=== PATIENT | female | born 1955 | race Caucasian/White ===

== ENCOUNTER 2021-03-07 13:15 | Outpatient (CLI) | payer MEDICARE, SELFPAY ==
--- NOTE | 2021-03-07 13:00 | ECHO_ITS ---
Patient Info Name: Alyson Salomon Age: 65 years : 1955 Gender: Female Ht: 66 in Wt: 367 lbs BSA: 2.89 m2 HR: 86 bpm BP: 152 / 90 mmHg Heart Rhythm: Sinus Rhythm Technical Quality: Fair Exam Date: 03/07/2021 1:36 PM Exam Location: [facility] Pulmonary Patient Status: Outpatient Admit Date: 03/07/2021 Staff Ordering Physician: MairaMayuri PA-C Lead Enterprise Architect: CINTHYA Attending Provider: MairaMayuri PA-C Exam Type: CA echo doppler color flow Study Info Indications R06.09 - Other forms of dyspnea Complete two-dimensional, color flow and Doppler transthoracic echocardiogram is performed. Summary 1. Left ventricular chamber dimension is normal. 2. Left ventricular systolic function is normal, estimated at 60-65%. 3. There is mildly increased left ventricular wall thickness. 4. The left ventricular diastolic function is grade I diastolic dysfunction. 5. There is a small pericardial effusion. In proximity to the RV apex, there is most likely a larger loculated pericardial effusion with fibrinous material within the pericardial space. Cannot exclude pericardial cyst. Consider CT chest or cardiac MRI if CT chest unrevealing. Clinical correlation advised. Left Ventricle Left ventricular chamber dimension is normal. Left ventricular systolic function is normal, estimated at 60-65%. There is mildly increased left ventricular wall thickness. The left ventricular diastolic function is grade I diastolic dysfunction. Right Ventricle Right ventricular chamber dimension is normal. Right ventricular systolic function is normal. Left Atria Left atrial chamber dimension is normal. Right Atria Right atrial chamber dimension is normal. Aortic Valve The aortic valve is not well visualized. There is no aortic valve stenosis. There is no aortic valve regurgitation. Pulmonic Valve The pulmonic valve is not well visualized. Mitral Valve The mitral valve has normal leaflets. There is no mitral valve regurgitation. Tricuspid Valve The tricuspid valve leaflets are not well visualized. There is trace tricuspid valve regurgitation. No pulmonary hypertension, estimated pulmonary arterial systolic pressure is 14 mmHg. Pericardium/Pleural The pericardium appears normal. There is a small pericardial effusion. In proximity to the RV apex, there is most likely a larger loculated pericardial effusion with fibrinous material within the pericardial space. Cannot exclude pericardial cyst. Consider CT chest or cardiac MRI if CT chest unrevealing. Clinical correlation advised. Aorta The aortic root size at the sinus of Valsalva is normal. Left Ventricular Outflow Tract Name Value Normal LVOT 2D LVOT Diameter 2.0 cm LVOT Doppler LVOT Peak Gradient 4 mmHg LVOT Mean Gradient 2 mmHg LVOT VTI 24 cm LVOT VTI/AV VTI Ratio 0.9 LVOT Stroke Volume 76 ml LVOT CO 14.2 l/min LVOT CI 4.9 l/min/m2 Mitral Valve
== END 2021-03-07 13:16 | disposition home or self-care (01) ==
PROVIDERS: PCP Physician Assistant; Visit Provider Physician Assistant
DX: R06.09 Other forms of dyspnea (principal); I31.3 Pericardial effusion (noninflammatory)
CPT/HCPCS: 93306

== ENCOUNTER 2021-03-31 08:44 | Outpatient (CLI) | payer MEDICARE, SELFPAY ==
--- NOTE | ~2021-03-31 | CT_ITS ---
EXAMINATION: CT diagnostic chest wo con EXAM DATE: 03/31/2021 11:02 INDICATION: Abnormal echocardiogram SOB x 1 yr . TECHNIQUE: Spiral CT of the chest without contrast. Axial, coronal and sagittal images of the chest were reviewed. Coronal maximum intensity pixel images of chest reviewed. The dose-length product (D LP) for this examination was 1187.81 mGy-cm. The exposure was tailored according to patient size (au to mA exposure control), and iterative reconstruction (ASIR) was used as additional dose reduction te nique. There is no prior study for comparison. FINDINGS: The lungs are clear. There are no pleural or pericardial effusions. Tracheobronchial t ree is patent. There is no mediastinal, hilar or axillary lymphadenopathy. There is no pneumothor ax. Heart normal in size. No evidence of coronary arterial calcification. There are cholecystect dain clips. There is mild thoracic spondylosis without osteoblastic or osteolytic lesions identified. IMPRESSION: 1. Unremarkable CT chest examination. Reviewed, dictated and finalized at location A.
--- NOTE | 2021-04-03 10:38 | P.PCNPFT_ITS ---
PFT Procedure Performed PFT Procedure Performed Spirometry with Pre/Post Bronchodilator Plethysmography (Lung Vol) Diffusing Cap (DLCO) Flow Vol Loop PFT Interpretation DOS: 03/31/2021 REQUESTING: DANYA Rao REASON FOR TESTING: Dyspnea on exertion PULMONARY FUNCTION TESTS Results are reliable and reproducible. Spirometry: FEV1 is 84% predicted, 2.01 L before bronchodilator. FVC is 98%. FEV1/FVC is 68% predicted. The TDN75-87% is 44% predicted. After bronchodilator, there is a non-statistically significant change in the FEV and FVC. The FEF25- 75% increase by 21%. Lung volumes: Total lung capacity is 105%, normal. RV is 119%, upper limit of normal. RV/TLC is increased consistent with air trapping. Airway resistance is 88%, normal. Diffusion: DLCO is 55%, moderately decreased. Flow volume loop: mild scooping of the expiratory limb. IMPRESSION: There is a mild obstructive ventilatory impairment which is severe in the small airways, mild air trapping, moderate diffusion impairment. There is mild response to bronchodilator in the small airways. This study suggest possible COPD asthma overlap. Clinical correlation is recommended. Elena Gilliam MD
== END 2021-03-31 08:45 | disposition home or self-care (01) ==
LOC: CHSIMG 08:53 → CHSCARD 09:11
PROVIDERS: PCP Physician Assistant; Visit Provider Internal Medicine Cardiovascular Disease
DX: R93.1 Abnormal findings on diagnostic imaging of heart and coronary circulation (principal); R06.09 Other forms of dyspnea
CPT/HCPCS: 71250; 94060; 94726; 94729

== ENCOUNTER 2021-04-11 16:32 | Outpatient (CLI) | payer MEDICARE, SELFPAY ==
--- NOTE | ~2021-04-11 | US_ITS ---
EXAMINATION: US venous doppler [facility] DATE: 04/11/2021 17:46 INDICATION: Left lower limb pain TECHNIQUE: Grayscale ultrasound images without and with compression and Doppler ultrasound images of the left lower extremity veins were obtained. COMPARISON: 11/28/2016 FINDINGS: The visualized portions of left common femoral vein, profunda (deep) femoral vein, femoral vein, popl iteal vein, posterior tibial veins, gastrocnemius vein and greater saphenous vein outflow are patent. IMPRESSION: 1. No deep venous thrombosis in the left lower limb. Reviewed, dictated and finalized at location A. RNATIONAL MARKETING INTERN
[2021-04-11 17:10] LABS: D Dimer 0.79 ug/mL (<0.48)
== END 2021-04-11 16:33 | disposition home or self-care (01) ==
LOC: ANHIMG 16:37
PROVIDERS: PCP Physician Assistant; Visit Provider Physician Assistant
DX: M79.662 Pain in left lower leg (principal)
CPT/HCPCS: 36415; 85380; 93971

== ENCOUNTER 2022-02-16 07:09 | Outpatient (CLI) | payer MEDICARE, SELFPAY ==
[2022-02-16 08:27] LABS: Basophils Absolute Auto 0.1 K/mm3 (0.0-0.1); Basophils Percent Auto 0.6 % (0.2-1.2); Eosinophils Absolute Auto 0.2 K/mm3 (0-0.3); Eosinophils Percent Auto 1.9 % (0-4.4); Hematocrit 44.4 % (37.0-47.0); Hemoglobin 14.1 g/dL (12.0-15.0); Immature Granulocyte Absolute 0.05 K/mm3 (0.00-0.031); Immature Granulocyte Percent A 0.6 % (0-0.5); Lymphocytes Absolute Auto 1.52 K/mm3 (0.9-3.2); Lymphocytes Percent Auto 19.5 % (18.3-44.2); Mean Corpuscular HGB Conc 31.8 g/dl (32-36); Mean Corpuscular Hemoglobin 31.2 pg (26-34); Mean Corpuscular Volume 98.2 fl (80-100); Mean Platelet Volume 9.4 fl (7.4-10.4); Monocytes Absolute Auto 0.6 K/mm3 (0.1-0.6); Monocytes Percent Auto 8.2 % (2.6-8.5); Neutrophils Absolute Auto 5.4 K/mm3 (1.3-6.7); Neutrophils Percent Auto 69.2 % (45.5-73.1); Platelet Count Result 196 k/mm3 (150-375); Red Blood Count 4.52 M/mm3 (4.2-5.4); Red Cell Distribution Width 13.9 % (11.5-14.5); White Blood Count 7.8 K/mm3 (4.5-10.0)
[2022-02-16 08:47] LABS: Appearance Urine Clear (Clear); Bilirubin Urine Negative (Negative); Blood Urine Negative (Negative); Color Urine Yellow (Yellow); Glucose Urine UA Negative (Negative); Ketones Urine Negative (Negative); Leukocyte Esterase Ur Negative LEU/UL (NEGATIVE); Nitrate Urine Negative (Negative); Protein Urine Negative (Negative); Specific Grav Ur 1.025 (1.001-1.035); Urobilinogen Urine 0.2 mg/dL (<2.0)
[2022-02-16 08:51] LABS: NT Pro B Type Natriuretic Pept 58 pg/mL (5-100)
[2022-02-16 08:58] LABS: Alanine Aminotransferase 33 U/L (6-35); Albumin Level 4.4 g/dL (3.5-5.1); Alkaline Phosphatase 133 U/L (38-126); Anion Gap 9 mmol/L (8-16); Aspartate Amino Transferase 29 U/L (14-36); Bilirubin,Total 0.6 mg/dL (0.2-1.3); Blood Urea Nitrogen 15 mg/dL (7-17); Calcium 9.1 mg/dL (8.4-10.2); Carbon Dioxide 27 mmol/L (22-30); Chloride 104 mmol/L (98-107); Cholesterol 187 mg/dL (0-200); Estimated Glomerular Filt Rate > 60; Glucose 118 mg/dL (65-110); HDL Direct 62 mg/dL; Potassium 4.2 mmol/L (3.4-5.0); Sodium 140 mmol/L (137-145); Triglycerides 109 mg/dL (<150)
[2022-02-16 09:01] LABS: Add Urine Microscopic? NO
[2022-02-16 09:10] LABS: LDL Cholesterol Direct 92 mg/dL
[2022-02-16 09:40] LABS: Hemoglobin A1C 5.9 % (<5.7)
[2022-02-16 09:45] LABS: Free T4 Free Thyroxine 1.19 ng/mL (0.78-2.19)
[2022-02-19 13:50] LABS: Immunoglobulin G, Serum 1055 mg/dL (600-1540); Immunoglobulin G1 507 mg/dL (382-929); Immunoglobulin G2 443 mg/dL (241-700); Immunoglobulin G3 201 mg/dL (22-178); Immunoglobulin G4 18.4 mg/dL (4.0-86.0)
[2022-02-19 17:48] LABS: Alpha-1-Antitrypsin, QN 119 mg/dL (83-199)
[2022-02-20 12:42] LABS: NIL 0.03 IU/mL; Quantiferon TB Plus, 1T NEGATIVE (NEGATIVE)
[2022-02-22 04:27] LABS: Immunoglobulin E 15 kU/L (<=114)
== END 2022-02-16 07:10 | disposition home or self-care (01) ==
PROVIDERS: PCP Physician Assistant; Visit Provider Nurse Practitioner
DX: E03.9 Hypothyroidism, unspecified (principal); R73.01 Impaired fasting glucose; E78.5 Hyperlipidemia, unspecified; R32 Unspecified urinary incontinence; Z79.899 Other long term (current) drug therapy; J44.9 Chronic obstructive pulmonary disease, unspecified; R06.09 Other forms of dyspnea
CPT/HCPCS: 36415; 80048; 80061; 80076; 81003; 82103; 82104; 82784; 82785; 82787; 83036; 83880; 84439; 84443; 85025; 86003; 86480; 87086; 87088

== ENCOUNTER 2025-02-17 12:42 | Outpatient (CLI) | payer MEDICARE, SELFPAY ==
--- NOTE | ~2025-02-17 | DEXA_ITS ---
Bone Density Report Name: DENNIS BOUDREAUX Age: 69 Sex: Female Ethnicity: White Date of : 1955 Indication: postmenopausal; screening for osteoporosis; height loss; asthma or emphysema; rheumatoid arthritis; Referring Provider: IBAN, FELIPE Study: Bone densitometry was performed. Exam Date: February 17, 2025 Accession number: [id number] Bone Density: Region BMD T-score Z-score Classification AP Spine(L1, L3, L4) 0.986 -0.6 1.5 Normal Femoral Neck (Right) 0.690 -1.4 0.3 Osteopenia Total Hip (Right) 0.990 0.4 1.8 Normal World Health Organization criteria for BMD impression classify patients as: Normal (T-score at or above -1.0), Osteopenia (T-score between -1.0 and -2.5), or Osteoporosis (T-score at or below -2.5). 10-year Fracture Risk(1): Major Osteoporotic Fracture 10% Hip Fracture 1.3% Reported Risk Factors: [place] (), Neck BMD=0.690, BMI=46.0, rheumatoid arthritis Input outside FRAX(R) limits. Adjusted to:Dtqpoz=507 kg (1) FRAX(R) Version 3.08. Fracture probability calculated for an untreated patient. Fracture probability may be lower if the patient has received treatment. Clinical Information Provided by Patient: Has rheumatoid arthritis Has the following medical conditions: Asthma or Emphysema Patient maximum height was 66 Menopause Age: 47 No regular weight bearing exercise Drinks caffeinated beverages Onset of menses at age 13 Number of children 4 Impression: The patient has low bone mass, based on the Right Femoral Neck T-score. The patient has an estimated ten-year risk of hip fracture of 1.3% and an estimated ten-year risk of major fracture of 10%, based on the WHO FRAX algorithm. Discussion: BONE DENSITY IS LOW AT ONE OR MORE SKELETAL SITES. This patient's lowest T-score is low at one or more skeletal sites. It meets the World Health Organization's (WHO) criteria for ?low bone mass? (T-score between -1.0 and -2.5). The patient's 10-year risk of fracture as calculated by FRAX is less than the threshold where pharmacological therapy is recommended by the National Osteoporosis Foundation (NOF). However, all treatment decisions require clinical judgment and consideration of individual patient factors, including patient preferences, comorbidities, previous drug use, risk factors not captured in the FRAX model (e.g., frailty, falls, vitamin D deficiency, increased bone turnover, interval significant decline in bone density) and possible under or overestimation of fracture risk by FRAX. The patient should follow a healthful lifestyle (good nutrition with adequate calcium and vitamin D, and appropriate weight-bearing exercise). Follow-Up: Consider repeating this study in 2 to 3 years to reassess this patient's status, or sooner if there is some new clinical indication. Reported by: CELINE on 02/17/2025 1:19:00 PM. Reviewed, dictated and finalized at location A.
--- NOTE | ~2025-02-17 | MM_ITS ---
EXAMINATION: MM screening anthony BI w luis HISTORY: Screening TECHNIQUE: Craniocaudal and mediolateral oblique 3-D tomosynthesis images were obtained and synthetic 2-D images were generated. CAD analysis was submitted and interpreted. COMPARISON: No prior mammogram is available for comparison at this institution. BREAST PARENCHYMAL COMPOSITION: There are scattered areas of fibroglandular density. FINDINGS: There is no evidence of suspicious mass, calcification, or architectural distortion to suggest malignancy. IMPRESSION: 1. No mammographic evidence of malignancy. Recommend routine screening mammography in one year. BI-RADS Category 2: Benign finding(s) Reviewed, dictated and finalized at location Q. IMPRESSION: 1. No mammographic evidence of malignancy. Recommend routine screening mammogra phy in one year. BI-RADS Category 2: Benign finding(s)
--- OUTSIDE RECORDS SUMMARY | 2025-02-17 12:50 | XMS_ITS | Clinical Summary ---
Author Organization [facility] Address [address] [place] [address] Care Team Providers Care Knitting Machine Fixer Head Name Role Phone Bernabe Ryan MD Unavailable [phone] Pcp, Amarjit Farmer - Primary Care Provider U navailable Source Comments [facility],non-owned Affiliates and Associated Physician Practices is amultiple site organization consisting of ambulatory clinics and hospital sitesin [place] and [place]. This disclosure is being madepursuant to the Care Everywhere program and may not contain all information available regarding this patient. Last updated 18.[facility] Allergies Active Allergy Reactions Criticality Noted Date Comments Penicillins Anaphylaxis High 07/15/2020 Medications * Be aware that medications may not be up to date on this document. Alwaysverify current medications with the patient. levothyroxine (SYNTHROID) 100 MCG tablet Take 1 (one) tablet by mouth once daily 1 Active albuterol HFA (PROVENTIL;VENT PAPO;PROAIR) 108 (90 Base) MCG/ACT inhaler Acti ve celecoxib (CELEBREX) 200 MG capsule Take 1 (one) capsule by mouth once daily 30 capsule 1 1 Active Additional Information Patient taking differently: 400 mgOral2 TIMES DAILY, Reported on 07/27/2022 Sulfacetamide Sodium, Acne, 10 % 1 Active furosemide (LASIX) 40 MG tablet Take 1 (one) tablet by mouth as needed Active metoprolol tartrate (LOPRESSOR) 25 MG tablet Take 1 (one) tablet by mouth 2 times daily Active metFORMIN ER 24hr (GLUCOPHAGE XR) 500 MG tablet 2 Active hydroxychloroqu ine (Plaquenil) 200 MG tabletIndicatio ns:Rheumatoid arthritis involving multiple sites with positive rheumatoid factor (HCC) TAKE 1 (ONE) TABLET BY MOUTH 2 TIMES DAILY 180 tablet 3 Active predniSONE (Deltasone) 10 MG tabletIndicatio ns:Rheumatoid arthritis involving multiple sites with positive rheumatoid factor (HCC) Take 1 (one) tablet by mouth once daily as needed 30 tablet 3 Active Active Problems Problem Noted Date Diagnosed Date Malaise and fatigue 09/07/2020 Hypersomnia with sleep apnea 09/07/2020 M obesity 09/07/2020 Overview (11/02/2021): BMI over 40 Mild intermittent asthma 08/02/2020 Morbid obesity with alveolar hypoventilation 01/2021 FRANCIA on CPAP 08/02/2020 Chronic radicular lumbar pain 08/02/2020 Rheumatoid arthritis involving multiple sites Overview (11/02/2021): Lesly Pardo MD (Physician) Rheumatology Encounter Date: 10/20/2021 Palpitations 08/02/2020 Acquired hypothyroidism 08/02/2020 Edema of both lower extremities 08/02/2020 Multiple lipomas 08/02/2020 IFG (impaired fasting glucose) 08/02/2020 Vitamin D deficiency 08/02/2020 Family history of pityriasis rosea 08/02/2020 Family History Medical History Relation Name Comments Cancer Father CVA Mother Cancer - Colon Mother None Known Sister Relation Name Status Comments Brother Alive Father Mother Sister Alive Social History Tobacco Use Types Packs/Day Years Used Date Smoking Tobacco: Never Smokeless Tobacco: Never Tobacco Cessation:Counseling Given: No Alcohol Use Standard Drinks/Week Comments Never 0 (1 standard drink = 0.6 oz pur e alcohol) AUDIT-C Answer Date Recorded Q1: How often do you have a drink containing alc ohol? Never 08/02/2020 Average Number of Drinks Not on file 021 Frequency of Binge Drinking Not on file 01/2021 PHQ-2 Answer Date Recorded PHQ2 TOTAL SCORE 0 07/27/2022 Comments No Sex and Gender Information Value Date Recorded Sex Assigned at Not on file Legal Sex Female 2:14 PM CARDIOPULMONARY TECHNICIAN AND EEG TECH Gender Identity Not on file Sexual Orientation Not on file Last Filed Vital Signs Vital Sign Reading Time Taken Comments Blood Pressure 137/91 07/27/2022 2:01 PM CARDIOPULMONARY TECHNICIAN AND EEG TECH Pulse 89 07/27/2022 2:01 PM CARDIOPULMONARY TECHNICIAN AND EEG TECH Temperature 36.2 C (97.2 F) 09/07/2020 10:37 AM CDT Respiratory Rate 18 07/27/2022 2:01 PM CARDIOPULMONARY TECHNICIAN AND EEG TECH Oxygen Saturation 97% 03/06/2022 8:51 AM CDT Inhaled Oxygen Concentration - - Weight 159.5 kg (351 lb 11.2 oz) 07/27/2022 2:01 PM CARDIOPULMONARY TECHNICIAN AND EEG TECH Height 167.6 cm (5' 6) 07/27/2022 2:01 PM CARDIOPULMONARY TECHNICIAN AND EEG TECH Body Mass Index 56.77 07/27/2022 2:01 PM CARDIOPULMONARY TECHNICIAN AND EEG TECH Plan of Treatment Health Maintenance Due Date Last Done Comments BONE DENSITY TESTING 1955 COLOGUARD (AGES 45-75) - COLON CA SCREENING [address] COLONO[address]AP[address] - COLON CA SCREENING 1955 FIT - COLON CA SCREENING 1955 FLEX SIG - COLON CA SCREENING 1955 MEDICARE AWV 12 MONTHS 1955 HEPATITIS C SCREENING 11/22/1973 PNEUMOCOCCAL VACCINE 50+ (1 of 2 - PCV) 11/26/1974 ZOSTER VACCINE (1 of 2) 11/26/2005 Respiratory Syncytial Virus (RSV) Vaccine Pt: or over 60 yrs (1 - Risk 60-74 years 1-dose series) 2015 MAMMOGRAM 09/12/2023 09/11/2021 DEPRESSION SCREENING 05/27/2024 07/27/2022 COVID-19 VACCINE ( season) 2025 INFLUENZA VACCINE (#1) 2025 LIPID TESTING 07/22/2025 07/22/2020 SCREENING FOR DIABETES 09/12/2025 3, 10/20/2021, 07/22/2020, Additional history exists COLONOSCOPY - COLON CA SCREENING Discontinued Colorectal Cancer Screening Discontinued DTAP/TDAP/TD VACCINES Discontinued HEPATITIS B VACCINE Aged Out No longe r eligible based on patient's age to complete this topic HIB VACCINE Aged Out No longer eligi ble based on patient's age to complete this topic HPV VACCINE Aged Out No longer eligi ble based on patient's age to complete this topic MENINGOCOCCAL (Group B) VACCINE SHARED DECISION-MAKING Aged Out No longer eligible based on patient's age to complete this topic MENINGOCOCCAL GROUPS A/C/Y/W VACCINE Aged Out No longer eligible based on patient's age to complete this topic Procedures Procedure Name Priority Date/Time Associated Diagnosis Comments COMPREHENSIVE METABOLIC PANEL Routine 09/12/2022 1:02 PM CDT Rheumatoid arthritis involving multiple sites with positive rheumatoid factor MAMMOGRAM 09/11/2021 LIPID PROFILE W TCHOL/HDL Routine 07/22/2020 9:10 AM CARDIOPULMONARY TECHNICIAN AND EEG TECH Screening, lipid from Last 3 Months or Most Recently Relevant to Health Maintenance Results * (ABNORMAL) COMPREHENSIVE METABOLIC PANEL (09/12/2022 1:02 PM CDT) Glucose 94 70 - 105 mg/dL [facility] INSURANCE BILL BUN 13 9.8 - 20.1 mg/dL [facility] INSURANCE BILL Creatinine 0.71 0.57 - 1.11 mg/dL [facility] INSURANCE BILL eGFR by CKD-EPI >90 >=90 mL/min/1.7 3 m2 [facility] INSURANCE BILL Sodium 142 136 - 145 mmol/L [facility] INSURANCE BILL Potassium 4.2 3.5 - 5.1 mmol/L [facility] INSURANCE BILL Chloride 106 98 - 107 mmol/L [facility] INSURANCE BILL CO2 26 23 - 31 mmol/L [facility] INSURANCE BILL Calcium 9.5 8.4 - 10.4 mg/dL [facility] INSURANCE BILL Protein Total 8.0 6.4 - 8.3 gm/dL [facility] INSURANCE BILL Albumin 4.3 3.2 - 4.6 gm/dL [facility] INSURANCE BILL Bilirubin Total 0.8 0.2 - 1.2 mg/dL [facility] INSURANCE BILL Alkaline Phosphatase 124 40 - 150 U/L [facility] INSURANCE BILL AST 39(H) 5 - 34 U/L [facility] INSURANCE BILL ALT 51 0 - 61 U/L [facility] INSURANCE BILL Comment:FASTING Blood BLOOD SPECIMEN / Unknown 09/12/2022 1:02 PM CDT 09/12/2022 Narrative Resulting Agency Comment Lab Testing performed at: [address] Radha PACKER [id number] us Lesly Pardo MD LAB - CHEMISTRY ORDERABLES Final Result [facility] INSURANCE BILL [address] [place] [address] * MAMMOGRAM (09/11/2021) Anatomical Region Laterality Modality Other 09/11/2021 Narrative 09/11/2021 Ordered by an unspecified provider. us Scanned Document SCANNING ONLY Final Result * (ABNORMAL) LIPID PROFILE W TCHOL/HDL (07/22/2020 9:10 AM CARDIOPULMONARY TECHNICIAN AND EEG TECH) Cholesterol 184 100 - 199 mg/dL [facility] INSURANCE BILL Triglycerides 114 0 - 149 mg/dL [facility] INSURANCE BILL HDL Cholesterol 52 >39 mg/dL [facility] INSURANCE BILL VLDL Calculated 20 5 - 40 mg/dL [facility] INSURANCE BILL LDL Calculated 112(H) 0 - 99 mg/dL [facility] INSURANCE BILL Comment NOT NEEDED [facility] INSURANCE BILL Comment:Ancillary determined the test is not needed. Cholesterol/HDL Ratio 3.5 0.0 - 4.4 ratio [facility] INSURANCE BILL Comment: T. Chol/HDL Ratio Men Women 1/2 Avg.Risk 3.4 3.3 Avg.Risk 5.0 4.4 2X Avg.Risk 9.6 7.1 3X Avg.Risk 23.4 11.0 FASTING Blood BLOOD SPECIMEN / Unknown 07/22/2020 9:10 AM CARDIOPULMONARY TECHNICIAN AND EEG TECH 07/22/2020 Narrative Resulting Agency Comment Lab Testing performed at: [facility] [address] [id number] us Deon Osorio MD LAB - CHEMISTRY ORDERABLES Final Result Performing Organization Address City/[facility]/ZIP Co de Phone Number [facility] INSURANCE BILL [address] [place] [address] from Last 3 Months or Most Recently Relevant to Health Maintenance Insurance MEDICARE SUPPLEMENT [employer] DANYA UGARTE [id number] MEDICARE Care Teams Knitting Machine Fixer Head Relationship Specialty Start Date End Date Amarjit Alfredo PCP - General 12/21/22 Bernabe Ryan MD [address] [facility] [address] [address] Internal Medicine Sleep Medicine 09/07/20
--- OUTSIDE RECORDS SUMMARY | 2025-02-17 12:50 | XMS_ITS | Encounter Summary ---
Author Organization [facility] Address [address] [place] [address] Care Team Providers Care Vest Tailor Name Role Phone Genia Rao Primary Care Provider [phone] Reason for Visit * Reason Onset Date Comments Wants Appointment 01/17/2023 Encounter Details Date Type Department Care Team (Late st Contact Info) Description 01/17/2023 Telephone [facility] Spine and Pain Management at the [facility] [address] [place] [address] John Jean MD [address] [place] [address] Wants Appointment Social History Tobacco Use Types Packs/Day Years Used Date Smoking Tobacco: Never Assessed Comments Unknown Sex and Gender Information Value Date Recorded Sex Assigned at Not on file Legal Sex Female 5:11 PM CDT Gender Identity Not on file Sexual Orientation Not on file documented as of this encounter Plan of Treatment Not on file documented as of this encounter Visit Diagnoses Not on filedocumented in this encounter Care Teams Vest Tailor Relationship Specialty Start Date End Date Genia Rao PA PCP - General Physician Filler Leaf Cutter Long 09/11/21 documented as of this encounter
--- OUTSIDE RECORDS SUMMARY | 2025-02-17 12:50 | XMS_ITS | Clinical Summary ---
Author Organization [facility] Address [address] [place] [address] Phone Care Team Providers Care Cardiovascular Specialist Name Role Phone Genia Rao Primary Care Provider [phone] Social History Tobacco Use Types Packs/Day Years Used Date Smoking Tobacco: Never Assessed Comments Unknown Sex and Gender Information Value Date Recorded Sex Assigned at Not on file Legal Sex Female 5:11 PM CDT Gender Identity Not on file Sexual Orientation Not on file Plan of Treatment Health Maintenance Due Date Last Done Comments DTAP/TDAP/TD VACCINES (1 - Tdap) 11/26/1974 PNEUMOCOCCAL VACCINE 50+ YEA RS (1 of 2 - PCV) 11/26/1974 ZOSTER VACCINE (1 of 2) 11/26/1974 COLORECTAL SCREENING 11/26/2000 Colorectal Cancer Screening 11/26/2000 FIT-DNA Q 3 years 11/26/2000 FIT/FOBT Q 1 year 11/26/2000 Flex Sig/CT Colonography Q 5 years 11/26/2000 RSV VACCINE (60+ or ) (1 - Risk 60-74 years 1-dose series) 2015 OSTEOPOROSIS SCREENING 12/13/2020 12/14/2015, 2015 BREAST CANCER SCREENING 08/27/2024 08/28/19 24, 07/19/2023, 09/11/2021, Additional history exists INFLUENZA VACCINE (#1) 2024 Procedures Procedure Name Priority Date/Time Associated Diagnosis Comments MAMMO DIAG UNI LEFT 3D DEMOND W OR WO CAD Routine 08/28/2023 8:21 AM CDT Abnormal mammogram of left breast from Last 3 Months or Most Recently Relevant to Health Maintenance Results * MAMMO 3D DEMOND DIAGNOSTIC UNI LT W OR WO CAD (08/28/2023 8:21 AM CDT) Anatomical Region Laterality Modality Breast Left Mammography 08/28/2023 8:22 AM CDT Impressions 08/28/2023 9:30 AM CDT IMPRESSION: 1. BIRADS Category 2, benign findings. No abnormality is identified in the left breast in the area of asymmetry on mammography. This area appears unchanged compared to the 2021 exam and the appearance on mammography is most school admissions representative of a small island of breast tissue. 2. Recommend return to yearly bilateral screening mammogram. 3. The findings and recommendations were discussed with the patient. Narrative 08/28/2023 9:30 AM CDT EXAM: MAMMO 3D DEMOND DIAGNOSTIC UNI LT W OR WO CAD, MAMMO BREAST US LEFT LTD DATE: 08/28/2023 CLINICAL HISTORY: Left breast asymmetry TECHNIQUE: Full field digital mammography and digital tomosynthesis of the left breast were performed in the ML projection. Spot compression views of the left breast with digital tomosynthesis were performed in the CC and MLO projections. Comparison was made to the screening mammogram performed July 19, 2023 as well as a prior mammogram performed September 11, 2021. CAD was utilized. Multiple ultrasonographic images of the mid to deep upper outer left breast were obtained by the technologist and submitted for review. In addition, a person performed ultrasonographic evaluation of the mid to deep upper outer left breast. FINDINGS: Scattered fibroglandular densities are present. The background parenchymal pattern is unchanged compared to the prior exams. The asymmetry in the mid to deep upper outer left breast at 1:00 to 2:00 6 cm from the nipple persists on the spot compression views. This area was identified on the 2021 exam and appears unchanged, though comparison is somewhat difficult as tomosynthesis images were not performed with the 2021 exam. Two small nearby intramammary lymph nodes are again identified and are normal in appearance. No other asymmetry is visualized. A few small calcifications are benign in appearance. Ultrasonographic evaluation of the mid to deep upper outer left breast was recommended and performed. Ultrasonographic evaluation of the mid to deep upper outer left breast at 2:00 6 cm from the nipple yields the 2 small intramammary lymph nodes identified on mammography, both demonstrating normal fatty param and no evidence of cortical thickening. Ultrasonographic evaluation of the surrounding tissue yields normal rest parenchyma without evidence of mass or cyst. Genia HAGAN MAMMO ORDERABLES Final Result from Last 3 Months or Most Recently Relevant to Health Maintenance Insurance [facility] DANYA UGARTE [facility] MEDICARE PART A AND B MEDICARE PART A AND B [facility] SUPP DANYA UGARTE [id number] Care Teams Cardiovascular Specialist Relationship Specialty Start Date End Date Genia Rao PA PCP - General Physician [place] Brushing Machine Operator 09/11/21
--- OUTSIDE RECORDS SUMMARY | 2025-02-17 12:50 | XMS_ITS | Clinical Summary ---
Author Organization [facility] [address] Address [address] [place] [address] Care Team Providers Care Fire Extinguisher Charger Name Role Phone Felipe Ferrera Primary Care Pr ovider Allergies Active Allergy Reactions Criticality Noted Date Comments Penicillins Rash Medium 02/20/2021 Medications albuterol HFA (PROVENTIL HFA,VENTOLIN HFA,PROAIR HFA) 90 mcg/actuation inhaler Inhale Active metFORMIN XR (GLUCOPHAGE XR) 500 mg 24 hr tablet 2 Active tolterodine LA (DETROL LA) 4 mg 24 hr capsuleIndication s:Stress incontinence,Urge incontinence Take 1 capsule (4 mg total) by mouth daily 30 capsule 2 2 Active solifenacin (VESIcare) 10 mg tabletIndications :Stress incontinence,Urge incontinence Take 1 tablet (10 mg total) by mouth daily 30 tablet 1 2 Active celecoxib (CeleBREX) 200 mg capsule Take 200 mg by mouth 2 (two) times a day Active levothyroxine (SYNTHROID) 100 mcg tablet Take 100 mcg by mouth 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 90 capsule 5 Active lidocaine (LIDODERM) 5 % Place 1 patch on the skin daily for 12 hours Remove & discard patch within 12 hours or as directed by . 10 patch Active Active Problems Problem Noted Date Diagnosed Date HOBBS (dyspnea on exertion) 02/20/2021 Palpitations 02/20/2021 BMI 50.0-59.9, adult 02/20/2021 Obstructive sleep apnea 02/20/2021 Bilateral lower extremity edema 02/20/2021 Mass of upper extremity 12/14/2015 Mass of hand 12/14/2015 Surgical History Surgery Date Site/Laterality Comments CHOLECYSTECTOMY SECTION Medical History Medical History Date Comments Dyspnea Thyroid disease Sleep apnea Peripheral venous insufficiency Rosacea Edema Family History Medical History Relation Name Comments Cancer Father Aneurysm Mother Cancer Mother Stroke Mother Relation Name Status Comments Father (Age 79) Mother (Age 69) Social History Tobacco Use Types Packs/Day Years Used Date Smoking Tobacco: Never Smokeless Tobacco: Never Personal Safety Answer Date Recorded Have you ever been in or are you currently in a harmful physical or emotional relationship or is someone making you feel afraid or unsafe? 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 Gender Identity Not on file Sexual Orientation Not on file Obstetrics History Last Filed Vital Signs Vital Sign Reading Time Taken Comments Blood Pressure 147/69 08/25/2024 10:27 AM CDT Pulse 89 08/25/2024 10:27 AM CDT Temperature 36.8 C (98.2 F) 08/25/2024 10:27 AM CDT Respiratory Rate 24 08/25/2024 10:27 AM CDT Oxygen Saturation 96% 08/25/2024 10:27 AM CDT Inhaled Oxygen Concentration - - Weight 158.8 kg (350 lb) 08/25/2024 5:38 AM CDT Height 167.6 cm (5' 6) 08/25/2024 5:38 AM CDT Body Mass Index 56.49 08/25/2024 5:38 AM CDT Plan of Treatment Health Maintenance Due Date Last Done Comments Colon Cancer Screening-Colonoscopy 1955 Depression Screening 1955 Fall Risk Assessment 1955 Hepatitis C Screening 1955 DTaP/Tdap/Td Vaccine (1 - Tdap) 11/26/1966 Hepatitis B Screening 11/26/1973 Pneumococcal vaccine 65+ (1 of 2 - PCV) 11/26/1974 Zoster Vaccine (1 of 2) 11/26/2005 Osteoporosis Screening-Bone Density Scan 12/13/2017 12/14/2015 Well Visit 65+ 11/26/2020 Breast Cancer Screening-Mammogram 07/19/2024 07/19/2023, 09/11/2021, 12/14/2015 Influenza Vaccine (#1) 2025 05/27/2014 Procedures Procedure Name Priority Date/Time Associated Diagnosis Comments DEXA AXIAL SKELETON BONE DENSITY 1 OR MORE SITES Routine 12/14/2015 2:19 PM CDT DIGITAL MAMMOGRAPHY Routine 12/14/2015 1 2:21 PM CDT from Last 3 Months or Most Recently Relevant to Health Maintenance Results * Dexa Axial Skeleton Bone Density 1 or 2 Site (12/14/2015 2:19 PM CDT) Anatomical Region Laterality Modality Body N/A Radiographic Shonda ging 12/14/2015 2:19 PM CDT Narrative 12/14/2015 4:31 PM CDT DANIEL BRIGHT M.D. CHRISTIANNE TORRES M.D. FINAL REPORT The radiology attending physician has personally reviewed this study, and has reviewed and/or edited this written report and agrees with it. EXAMINATION: BONE DENSITOMETRY OF THE SPINE AND HIP DATE OF STUDY: 12/14/2015 HISTORY: 60-year-old postmenopausal woman. She is not being treated with medications for osteoporosis. Evaluate bone mineral density. Additional risk factors for fracture: none. FINDINGS (SPINE): The bone mineral density of L1, L2, L3 was assessed by dual-energy x-ray absorptiometry. The average bone mineral density within this region is 0.931 gm/sq-cm. This is 0.6 standard deviations above the mean of the average bone mineral density for age- and gender-matched subjects (the Z-score). It is 0.8 standard deviations below the mean peak bone mineral density in young adults (the T-score). L4 was removed analysis because of degenerative changes. FINDINGS (FEMORAL NECK): The bone mineral density of the left femoral neck was assessed by dual-energy x-ray absorptiometry. The average bone mineral density within the femoral neck region is 0.729 gm/sq-cm. This is 0.2 standard deviations above the mean of the average bone mineral density for age- and gender-matched subjects (the Z-score). It is 1.1 standard deviations below the mean peak bone mineral density in young adults (the T-score). FINDINGS (TOTAL HIP): The bone mineral density of the left hip was assessed by dual-energy x-ray absorptiometry. The average bone mineral density within the total hip region is 0.974 gm/sq-cm. This is 1.2 standard deviations above the mean of the average bone mineral density for age- and gender-matched subjects (the Z-score). It is 0.3 standard deviations above the mean peak bone mineral density in young adults (the T-score). SUMMARY OF CURRENT RESULTS: Region BMD T-score Z-score AP Spine (L1, L2, L3) 0.931 -0.8 0.6 Femoral Neck (Left) 0.729 -1.1 0.2 Total Hip (Left) 0.974 0.3 1.2 IMPRESSION: - 1. The bone mineral density of the lumbar spine is normal. 2. The bone mineral density of the left femoral neck is mildly decreased. 3. The bone mineral density of the left total hip is normal. 4. Overall, the above findings are diagnostic of low bone mass (osteopenia) by WHO criteria. 5. Based on the FRAX fracture risk model, the 10-year probability for major osteoporotic fracture is 6.2% and that for hip fracture is 0.3%. This 10-year fracture risk estimate was calculated using the risk factors noted in the history above, along with the femoral neck bone density. FRAX is intended to help guide treatment decisions in men over age 50 and postmenopausal women with low bone mass (osteopenia). The National Osteoporosis Foundation (NOF) recommends that FDA-approved medical therapies be considered in postmenopausal women and men age 50 years and older with low bone mass whose 10-year fracture probability by FRAX is >= 20% for major osteoporotic fracture or >= 3% for hip fracture. However, all treatment decisions require clinical judgment and consideration of individual patient factors, including patient preferences, comorbidities, previous drug use, risk factors not captured in the FRAX model (e.g., frailty, falls, vitamin D deficiency, increased bone turnover, interval significant decline in bone density) and possible under- or overestimation of fracture risk by FRAX. General comments regarding interpretation of bone density measurements: a) In children, premenopausal woman and males under age 50 not at increased risk for fractures only Z-scores, not T-scores are used to indicate risk. A Z-score above -2.0 is defined as within the expected range for age and Z-score at or less than -2.0 is below the expected range for age. A Z-score below the expected range for age in a patient with recent fractures and/or chronic corticosteroid treatment is consistent with a diagnosis of osteoporosis. b) In post menopausal women and males over 50, comparison of the measured bone mineral density with the average value in young normal subjects (the T-score) has been found to be useful in assessing fracture risk. Fracture risk approximately doubles for each 1.0 standard deviation (SD) in individual's hip or spine bone mineral density is below the average value of young normal subjects. The World Health Organization (WHO) has defined T-scores of -1.0 to -2.5 as diagnostic of low bone mass (OSTEOPENIA), and T-scores of -2.5 or lower to be diagnostic of OSTEOPOROSIS, based on the site of lowest bone density. Note that there will be a change in reporting format and reference databases as patients move from the younger population (group a) to the older population (group b) The National Osteoporosis Foundation (www.nof.org) recommends adequate intake of calcium and vitamin D and regular weight-bearing exercise in all patients. They recommend pharmacologic treatment in postmenopausal women and men age 50 and older presenting with any of the followin) Osteoporosis, after appropriate evaluation to exclude secondary causes. 2) A hip or vertebral (clinical or radiographic) fracture, regardless of the bone density. 3) Low bone mass (Osteopenia) and one or more of: other prior fractures, secondary causes associated with high risk of fracture (such as glucocorticoid use or total immobilization), or computed high risk of fracture (10-yr probability of hip fracture >= 3% or a 10-yr probability of any major osteoporosis-related fracture >= 20% based on the [place].-adapted WHO algorithm), available at http://www.shef.ac.uk/FRAX). Requested By: Dictated By: CHRISTIANNE TORRES M.D. on Dec 14 2015 3:12P This document has been electronically signed by: DANIEL BRIGHT M.D. on Dec 14 2015 4:31P [id number] Procedure Note Provider, MD Brennan - 10/01/2016 DANIEL BRIGHT M.D. CHRISTIANNE TORRES M.D. FINAL REPORT The radiology attending physician has personally reviewed this study, and has reviewed and/or edited this written report and agrees with it. EXAMINATION: BONE DENSITOMETRY OF THE SPINE AND HIP DATE OF STUDY: 12/14/2015 HISTORY: 60-year-old postmenopausal woman. She is not being treated with medications for osteoporosis. Evaluate bone mineral density. Additional risk factors for fracture: none. FINDINGS (SPINE): The bone mineral density of L1, L2, L3 was assessed by dual-energy x-ray absorptiometry. The average bone mineral density within this region is 0.931 gm/sq-cm. This is 0.6 standard deviations above the mean of the average bone mineral density for age- and gender-matched subjects (the Z-score). It is 0.8 standard deviations below the mean peak bone mineral density in young adults (the T-score). L4 was removed analysis because of degenerative changes. FINDINGS (FEMORAL NECK): The bone mineral density of the left femoral neck was assessed by dual-energy x-ray absorptiometry. The average bone mineral density within the femoral neck region is 0.729 gm/sq-cm. This is 0.2 standard deviations above the mean of the average bone mineral density for age- and gender-matched subjects (the Z-score). It is 1.1 standard deviations below the mean peak bone mineral density in young adults (the T-score). FINDINGS (TOTAL HIP): The bone mineral density of the left hip was assessed by dual-energy x-ray absorptiometry. The average bone mineral density within the total hip region is 0.974 gm/sq-cm. This is 1.2 standard deviations above the mean of the average bone mineral density for age- and gender-matched subjects (the Z-score). It is 0.3 standard deviations above the mean peak bone mineral density in young adults (the T-score). SUMMARY OF CURRENT RESULTS: Region BMD T-score Z-score AP Spine (L1, L2, L3) 0.931 -0.8 0.6 Femoral Neck (Left) 0.729 -1.1 0.2 Total Hip (Left) 0.974 0.3 1.2 IMPRESSION: - 1. The bone mineral density of the lumbar spine is normal. 2. The bone mineral density of the left femoral neck is mildly decreased. 3. The bone mineral density of the left total hip is normal. 4. Overall, the above findings are diagnostic of low bone mass (osteopenia) by WHO criteria. 5. Based on the FRAX fracture risk model, the 10-year probability for major osteoporotic fracture is 6.2% and that for hip fracture is 0.3%. This 10-year fracture risk estimate was calculated using the risk factors noted in the history above, along with the femoral neck bone density. FRAX is intended to help guide treatment decisions in men over age 50 and postmenopausal women with low bone mass (osteopenia). The National Osteoporosis Foundation (NOF) recommends that FDA-approved medical therapies be considered in postmenopausal women and men age 50 years and older with low bone mass whose 10-year fracture probability by FRAX is >= 20% for major osteoporotic fracture or >= 3% for hipfracture. However, all treatment decisions require clinical judgment and consideration of individual patient factors, including patient preferences, comorbidities, previous drug use, risk factors not captured in the FRAX model (e.g., frailty, falls, vitamin D deficiency, increased bone turnover, interval significant decline in bone density) and possible under- or overestimation of fracture risk by FRAX. General comments regarding interpretation of bone density measurements: a) In children, premenopausal woman and males under age 50 not at increased risk for fractures only Z-scores, not T-scores are used to indicate risk. A Z-score above -2.0 is defined as within the expected range for age and Z-score at or less than -2.0 is below the expected range for age. A Z-score below the expected range for age in a patient with recent fractures and/or chronic corticosteroid treatment is consistent with a diagnosis of osteoporosis. b) In post menopausal women and males over 50, comparison of the measured bone mineral density with the average value in young normal subjects (the T-score) has been found to be useful in assessing fracture risk. Fracture risk approximately doubles for each 1.0 standard deviation (SD) in individual's hip or spine bone mineral density is below the average value of young normal subjects. The World Health Organization (WHO) has defined T-scores of -1.0 to -2.5 as diagnostic of low bone mass (OSTEOPENIA), and T-scores of -2.5 or lower to be diagnostic of OSTEOPOROSIS, based on the site of lowest bone density. Note that there will be a change in reporting format and reference databases as patients move from the younger population (group a) to the older population (group b) The National Osteoporosis Foundation (www.nof.org) recommends adequate intake of calcium and vitamin D and regular weight-bearing exercise in all patients. They recommend pharmacologic treatment in postmenopausal women and men age 50 and older presenting with any of the followin) Osteoporosis, after appropriate evaluation to exclude secondary causes. 2) A hip or vertebral (clinical or radiographic) fracture,regardless of the bone density. 3) Low bone mass (Osteopenia) and one or more of: other prior fractures, secondary causes associated with high risk of fracture (such as glucocorticoid use or total immobilization), or computed high risk of fracture (10-yr probability of hip fracture >= 3% or a 10-yr probability of any major osteoporosis-related fracture >= 20% based on the [place].-adapted WHO algorithm), available at http://www.shef.ac.uk/FRAX). Requested By: Dictated By: CHRISTIANNE TORRES M.D. on Dec 14 2015 3:12P This document has been electronically signed by: DANIEL BRIGHT M.D. on Dec 14 2015 4:31P [id number] [facility] Provider MD BARR DXA PROCEDURES Final Result * DIGITAL MAMMOGRAPHY (12/14/2015 12:21 PM CDT) Anatomical Region Laterality Modality Breast Mammography 12/14/2015 12:2 1 PM CDT Narrative 12/21/2015 11:47 AM CDT Acc#: [id number] [facility] [id number] - Screening Mamm BI DATE OF EXAM: Dec 14 2015 12:21PM DIAGNOSIS: ENCNTR SCREEN MAMMOGRAM FOR MALIGNANT NE CLINICAL HISTORY: SCREENING RESULT: EXAM: BILATERAL DIGITAL SCREENING MAMMOGRAM DATE: December 14, 2015 CLINICAL HISTORY: Screening in an asymptomatic patient with a family history of breast cancer TECHNIQUE: Bilateral full field digital mammography was performed in the CC and MLO projections. Prior mammograms were performed at [facility] in [place], [place] and are not currently available for comparison. CAD was utilized. FINDINGS: Scattered fibroglandular densities are present in both breasts. An ovoid nodular density in the mid upper outer left breast is identified. Scattered bilateral calcifications are benign in appearance. Attempts will be made to obtain prior outside mammograms for comparison. IMPRESSION: BIRADS CATEGORY 0, INCOMPLETE: NEED PRIOR MAMMOGRAMS FOR COMPARISON. ATTEMPTS WILL BE MADE TO OBTAIN PRIOR OUTSIDE MAMMOGRAMS FOR COMPARISON. IMPRESSION OF OVERALL ASSESSMENT: CATEGORY 0 - INCOMPLETE. NEEDS ADDITIONAL EVALUATION WITH COMPARISON TO PRIOR (OLD) FILMS (OLD FILMS SENT FOR). Dr. Muro ADDENDUM Prior mammographic examination dated 02/15/2011 from [facility], [place], [place] is now available for comparison. There has been no significant interval change in the appearance of the breast parenchyma since the prior examination. The previously described small ovoid isodense superficial mass in upper outer left breast is unchanged and may represent an intramammary lymph node. IMPRESSION: 1. BI-RADS CATEGORY 2, BENIGN. 2. ANNUAL SCREENING MAMMOGRAPHY, MONTHLY SELF-BREAST EXAMINATIONS AND YEARLY BREAST EXAMINATION BY PHYSICIAN ARE RECOMMENDED. TECHNOLOGIST: HANSA READ TECHNOLOGIST MEDICAL IMAGING [address] RESEARCHER: [id number] TRANSCRIBE DATE/TIME: Dec 14 2015 5:25P RADIOLOGIST: BAUTISTA KIDD M.D. READ ON: Dec 20 2015 9:10P ORDERING DR: FELIPE HAGAN [address] COURT RESEARCHER: LB3 TRANSCRIBE DATE/TIME: Dec 14 2015 5:25P RADIOLOGIST: BAUTISTA KIDD M.D. READ ON: Dec 20 2015 9:10P ORDERING DR: FELIPE HAGAN THIS DOCUMENT HAS BEEN ELECTRONICALLY SIGNED BY: BAUTISTA KIDD M.D. ON: Dec 21 2015 11:47A Attending: FELIPE FERRERA Requesting: FELIPE FERRERA Requesting Attending Attending ID: [id number] Requesting ID: [id number] Report To 1 ID: Report To 1 Name: , Report To 1 FAX: -- Report To 2 ID: [id number] Report To 2 Name: ALEJANDRINA ROME Report To 2 FAX: [phone] NextGen Order #: Procedure Note Provider, MD Brennan - 10/01/2016 Acc#: [id number] [facility] 0012 - Screening Mamm BI DATE OF EXAM: Dec 14 2015 12:21PM DIAGNOSIS: ENCNTR SCREEN MAMMOGRAM FOR MALIGNANT NE CLINICAL HISTORY: SCREENING RESULT: EXAM: BILATERAL DIGITAL SCREENING MAMMOGRAM DATE: December 14, 2015 CLINICAL HISTORY: Screening in an asymptomatic patient with a family history of breast cancer TECHNIQUE: Bilateral full field digital mammography was performed in the CC and MLO projections. Prior mammograms were performed at [facility] in [place], [place] and are not currently available for comparison. CAD was utilized. FINDINGS: Scattered fibroglandular densities are present in both breasts. An ovoid nodular density in the mid upper outer left breast is identified. Scattered bilateral calcifications are benign in appearance. Attempts will be made to obtain prior outside mammograms for comparison. IMPRESSION: BIRADS CATEGORY 0, INCOMPLETE: NEED PRIOR MAMMOGRAMS FOR COMPARISON. ATTEMPTS WILL BE MADE TO OBTAIN PRIOR OUTSIDE MAMMOGRAMS FOR COMPARISON. IMPRESSION OF OVERALL ASSESSMENT: CATEGORY 0 - INCOMPLETE. NEEDS ADDITIONAL EVALUATION WITH COMPARISON TO PRIOR (OLD) FILMS (OLD FILMS SENT FOR). Dr. Muro ADDENDUM Prior mammographic examination dated 02/15/2011 from [place], [place] is now available for comparison. There has been no significant interval change in the appearance of the breast parenchyma since the prior examination. The previously described small ovoid isodense superficial mass in upper outer left breast is unchanged and may represent an intramammary lymph node. IMPRESSION: 1. BI-RADS CATEGORY 2, BENIGN. 2. ANNUAL SCREENING MAMMOGRAPHY, MONTHLY SELF-BREAST EXAMINATIONS AND YEARLY BREAST EXAMINATION BY PHYSICIAN ARE RECOMMENDED. TECHNOLOGIST: HANSA READ TECHNOLOGIST MEDICAL IMAGING FIELD COURT RESEARCHER: [id number] TRANSCRIBE DATE/TIME: Dec 14 2015 5:25P RADIOLOGIST: BAUTITSA KIDD M.D. READ ON: Dec 20 2015 9:10P ORDERING DR: FELIPE HAGAN [address] COURT RESEARCHER: [id number] TRANSCRIBE DATE/TIME: Dec 14 2015 5:25P RADIOLOGIST: BAUTISTA KIDD M.D. READ ON: Dec 20 2015 9:10P ORDERING DR: FELIPE HAGAN THIS DOCUMENT HAS BEEN ELECTRONICALLY SIGNED BY: BAUTISTA KIDD M.D. ON: Dec 21 2015 11:47A Attending: FELIPE FERRERA Requesting: FELIPE FERRERA Requesting Attending Attending ID: [id number] Requesting ID: [id number] Report To 1 ID: Report To 1 Name: , Report To 1 FAX: -- Report To 2 ID: [id number] Report To 2 Name: ALEJANDRINA ROME Report To 2 FAX: [phone] NextGen Order #: us Historical Provider MD BARR MAMMO PROCEDURES Jennifer l Result from Last 3 Months or Most Recently Relevant to Health Maintenance Insurance MEDICARE [facility] MEDICARE SUPPLEMENT INSURANCE MEDICARE [facility] MEDICARE SUPPLEMENT INSURANCE MEDICARE [facility] MEDICARE SUPPLEMENT INSURANCE MEDICARE [facility] MEDICARE SUPPLEMENT INSURANCE MEDICARE Care Teams Fire Extinguisher Charger Relationship Specialty Start Date End Date Felipe Ferrera PA PCP - General Physician Diet Counselor 02/16/21
--- OUTSIDE RECORDS SUMMARY | 2025-02-17 12:50 | XMS_ITS | Clinical Summary ---
Author Organization [facility] Address [address] [place] [address] Care Team Providers [employer] Name Role Phone Trevor Chao MD Primary Care Provider [phone] Allergies Active Allergy Reactions Criticality Noted Date Comments Penicillins Hives 05/07/2024 Medications levothyroxine (SYNTHROID) 100 MCG tablet Take 1 tablet (100 mcg total) by mouth daily. Active metFORMIN ER (GLUCOPHAGE-XR) 500 MG 24 hr tablet 4 Active solifenacin succinate (VESICARE) 10 MG Tab 4 Active diclofenac EC (VOLTAREN) 75 MG tabletIndications: Primary osteoarthritis of left knee,Primary osteoarthritis of right knee Take 1 tablet (75 mg total) by mouth 2 (two) times daily. 60 tablet 2 5 Active albuterol sulfate HFA 108 (90 Base) MCG/ACT inhaler Inhale 2 puffs into the lungs every 6 (six) hours as needed for Shortness of breath or Wheezing. Active traMADol (ULTRAM) 50 MG tablet Take 1 tablet (50 mg total) by mouth every 6 (six) hours as needed for Pain. Active furosemide (LASIX) 40 MG tablet Take 1 tablet (40 mg total) by mouth as needed. 5 Active gabapentin (NEURONTIN) 300 MG capsule Take 1 capsule (300 mg total) by mouth daily. 5 Active potassium chloride CR (K-TAB) 10 MEQ Tab CR tablet Take 1 tablet (10 mEq total) by mouth as needed. 5 Active predniSONE (DELTASONE) 10 mg tablet Take 1 tablet (10 mg total) by mouth daily as needed. Active Hospital, Clinic, or Other Facility Administered Medication Ordered Dose Route Frequency Start Date End Date Status methylPREDNISolone acetate (DEPO-Medrol) injection 80 mgIndications:Primary osteoarthritis of left knee 80 mg Other Once 02/08/2025 02/09/20 25 Ended lidocaine (XYLOCAINE) 1 % injection SOLN 8 mLIndications:Primary osteoarthritis of left knee 8 mL Other Once 02/08/2025 02/09/20 25 Ended Active Problems Problem Noted Date Diagnosed Date Cellulitis of left lower extremity from knee to ankle 11/09/2024 Lymphedema of right lower extremity 11/09/2024 Lymphedema of left lower extremity 11/09/2024 Primary osteoarthritis of left knee 09/08/2024 Primary osteoarthritis of right knee 09/08/2024 Major depressive disorder, single episode, moder ate 09/08/2024 BMI 50.0-59.9, adult 02/20/2021 Dyspnea on exertion 02/20/2021 Hypersomnia with sleep apnea 09/07/2020 Malaise and fatigue 09/07/2020 Acquired hypothyroidism 08/02/2020 Chronic radicular lumbar pain 08/02/2020 Lipedema of lower extremity 08/02/2020 Family history of pityriasis rosea 08/02/2020 Impaired fasting glucose 08/02/2020 Mild intermittent asthma ([facility]) 08/02/2020 Morbid obesity with alveolar hypoventilation 01/2021 Overview (09/08/2024): BMI over 40 Multiple lipomas 08/02/2020 Obstructive sleep apnea syndrome 08/02/2020 Rheumatoid arthritis involvi ng multiple sites ([facility]) 08/02/2020 Overview (09/08/2024): Lesly Pardo MD (Physician) ? ? Rheumatology ? ? Encounter Date: 10/20/2021 ? Vitamin D deficiency 08/02/2020 Resolved Problems Problem Noted Date Diagnosed Date Resolved Date Palpitations 08/02/2020 09/08/2024 Mass of hand 12/14/2015 09/08/2024 Encounters Date Type Department Care Team Description 02/08/2025 10:00 AM CDT Office Visit [place] [phone] Natalie Don, ARCHITECTURE INSTRUCTOR-BC Knee Pain (LEFT) 02/08/2025 Travel from Last 3 Months Family History Medical History Relation Comments Cancer Father Cancer Mother Relation Status Comments Father Mother Social History Tobacco Use Types Packs/Day Years Used Date Smoking Tobacco: Never Smokeless Tobacco: Never Tobacco Cessation:Counseling Given: Not Answered Alcohol Use Standard Drinks/Week Comments Not Currently 0 (1 standard drink = 0.6 oz pur e alcohol) PHQ-2 Answer Date Recorded Patient Health Questionnaire-2 Score 0 05/07/2024 Comments Unknown Sex and Gender Information Value Date Recorded Sex Assigned at Not on file Legal Sex Female 2:00 PM CDT Gender Identity Not on file Sexual Orientation Not on file Last Filed Vital Signs Vital Sign Reading Time Taken Comments Blood Pressure 153/88 05/07/2024 8:10 AM ECONOMICS PROFESSOR Pulse 78 05/07/2024 8:10 AM ECONOMICS PROFESSOR Temperature - - Respiratory Rate - - Oxygen Saturation 97% 05/07/2024 8:10 AM ECONOMICS PROFESSOR Inhaled Oxygen Concentration - - Weight 163.3 kg (360 lb) 02/08/2025 10:12 AM CDT Height 167.6 cm (5' 6) 02/08/2025 10:12 AM CDT Body Mass Index 58.11 02/08/2025 10:12 AM CDT Plan of Treatment Health Maintenance Due Date Last Done Comments Colorectal Cancer Screening Colonoscopy (10 Years) 1955 Hepatitis C 11/26/1973 Pneumococcal Vaccine: 50+ Years (1 of 2 - PCV) 11/26/1974 Zoster Vaccines (1 of 2) 11/26/2005 DTaP, Tdap and Td Vaccines ( 1 - Tdap) 05/28/2014 05/27/2014 RSV Immunization or 60+ Years (1 - Risk 60-74 years 1-dose series) 2015 Annual Medicare Wellness Visit 11/26/2020 PHQ-2 (Physician [place]) 05/27/2024 05/07/2024 COVID-19 Vaccine (1 - 2023-2 5 season) 2025 Mammogram Screening 08/27/2025 08/28/2023, 07/19/2023, 09/11/2021 Dexa Scan (General) Completed 12/14/2015, 12/14/2015 Meningococcal B Vaccine Aged Out No l onger eligible based on patient's age to complete this topic Meningococcal Vaccine Aged Out No miriam yoandy eligible based on patient's age to complete this topic RSV Immunizations Under 20 Months Aged Out No longer eligible b ased on patient's age to complete this topic Insurance [employer] MEDICARE Care Teams [employer] Libr[employer] Relationship Specialty Start Date End Date Trevor Chao MD [address] [place] [address] PCP - General INTERNAL MEDICINE 05/07/24
== END 2025-02-17 12:43 | disposition home or self-care (01) ==
LOC: CHSIMG 12:47
PROVIDERS: PCP Physician Assistant; Visit Provider Physician Assistant
DX: Z12.31 Encounter for screening mammogram for malignant neoplasm of breast (principal); Z78.0 Asymptomatic menopausal state; M85.88 Other specified disorders of bone density and structure, other site
CPT/HCPCS: 77063; 77067; 77080